=== PATIENT | male | born 1985 | race Caucasian/White ===

== ENCOUNTER 2019-01-07 02:30 | Emergency (ER) | payer SELFPAY ==
--- NOTE | 2019-01-07 02:42 | EDM.PDOC ---
ED HPI GENERAL MEDICAL PROBLEM - General Chief Complaint: Respiratory Problem Stated Complaint: COUGH AND CONGESTION GETTING WORSE Time Seen by Provider: 01/07/19 02:41 Source of Information: Reports: Patient History Limitations: Reports: No Limitations - History of Present Illness INITIAL COMMENTS - FREE TEXT/NARRATIVE: 33-year-old male presents to the ED due to severe paroxysmal coughing since going to bed tonight. He's coughed to the point of emesis 2. Patient states that he has been ill with cough for about 2 weeks. However the cough seems to gone much worse over the last 24 hours. He was off over the weekend and drove back from [facility] and [facility] to [email or web address] for work tomorrow. Cough is severe paroxysmal at times but not bringing up much sputum. No identified fever or chills. Poor appetite particularly today. He has taken some fluids but no food. No chills or rigors. One of his coworkers was diagnosed with pneumonia about a month ago. He denies high fever or body aches or headaches with initial onset of illness 2 weeks ago. Onset: Gradual (Has been coughing for 2 weeks. Worse the last 24 hours) Duration: Week(s): Location: Reports: Chest (2 weeks or paroxysmal cough to the point of emesis tonight.) Quality: Reports: Other (Paroxysmal nonproductive cough) Severity: Severe (Or paroxysmal cough tonight.) Improves with: Reports: None Worsens with: Reports: Other Context: Reports: Sick Contact (Possible contact with this coworker with pneumonia). Denies: Activity, Exercise (Worse with lying down), Lifting, Trauma , Other Associated Symptoms: Reports: Chest Pain, Cough (Severe paroxysmal cough with minimal sputum production), Loss of Appetite, Malaise, Shortness of Breath, Other (From coughing so hard.). Denies: Confusion, Headaches ( Her throat and raspy voice from coughing so much), Nausea/Vomiting, Rash, Seizure, Syncope Treatments [employer]: Reports: Other (see below) (None.) - Related Data Allergies Allergy/AdvReac Type Severity Reaction Status Date / Time Penicillins Allergy Hives Verified 01/07/19 02:47 Sulfa (Sulfonamide Allergy Hives Verified 01/07/19 02:47 Antibiotics) Home Meds: Home Meds Azithromycin [Zithromax] 250 mg PO DAILY #6 tab 01/07/19 [Rx] Hydrocodone/Chlorphen P-Stirex [Tussionex Pennkinetic Susp] 5 ml PO Q12H PRN # 60 ml 01/07/19 [Rx] Social & Family History - Living Situation & Occupation Occupation: Employed ED ROS GENERAL - Review of Systems Review Of Systems: See Below Constitutional: Reports: Malaise, Fatigue, Decreased Appetite (As anything in the last 24 hours but has taken adequate fluids). Denies: Fever, Chills HEENT: Reports: Throat Pain (From coughing so much), Other (Hoarseness of his voice) Respiratory: Reports: Shortness of Breath, Cough, Sputum. Denies: Wheezing, Pleuritic Chest Pain, Hemoptysis (Occasional sputum production) Cardiovascular: Reports: Chest Pain, Lightheadedness, Palpitations. Denies: Blood Pressure Problem (Central chest and coughing so much), Claudication, Dyspnea on Exertion, Edema (From coughing at times), Orthopnea Endocrine: Reports: Fatigue GI/Abdominal: Reports: Vomiting (Posttussive vomiting 2 tonight.) : Reports: No Symptoms Musculoskeletal: Reports: No Symptoms Skin: Reports: No Symptoms Neurological: Reports: No Symptoms Psychiatric: Reports: No Symptoms Hematologic/Lymphatic: Reports: No Symptoms ED EXAM, GENERAL - Physical Exam Exam: See Below Exam Limited By: No Limitations General Appearance: Alert, WD/WN, Mild Distress, Other (Anxious with mild hyperventilation 26/m. O2 sats 99% on room air. Blood pressures also mildly elevated at 153/95. He is afebrile) Eye Exam: Bilateral Eye: Normal Inspection Ears: Normal TMs Throat/Mouth: Other (The oropharynx is diffusely inflamed particularly posteriorly. Uvula is slightly swollen and believe this is secondary to coughing so hard. There was no exudate tonsils are absent.) Head: Atraumatic, Normocephalic Neck: Normal Inspection, Supple, Non-Tender, Full Range of Motion. No: Lymphadenopathy (L), Lymphadenopathy (R) Respiratory/Chest: Lungs Clear, Chest Non-Tender, Respiratory Distress. No: Rales, Rhonchi (Mild tachypnea.), Wheezing Cardiovascular: Normal Peripheral Pulses, Regular Rate, Rhythm, No Edema, No Gallop, No Murmur, No Rub Peripheral Pulses: 3+: Posterior Tibial (L), Posterior Tibial (R), Dorsalis Pedis (L), Dorsalis Pedis (R) GI/Abdominal: Normal Bowel Sounds, Soft, Non-Tender, No Organomegaly Back Exam: Normal Inspection, Full Range of Motion. No: CVA Tenderness (L), CVA Tenderness (R) Extremities: Normal Inspection, Normal Range of Motion, Non-Tender, No Pedal Edema Neurological: Alert, Oriented, CN II-XII Intact, Normal Cognition Psychiatric: Normal Affect, Normal Mood Skin Exam: Warm, Dry, Intact, Normal Color, No Rash Course - Vital Signs Last Recorded V/S: Last Vital Signs Temp 36.8 C 01/07/19 02:45 Pulse 93 01/07/19 02:45 Resp 26 H 01/07/19 02:45 BP 153/95 H 01/07/19 02:45 Pulse Ox 99 01/07/19 03:06 - Orders/Labs/Meds Orders: Active Orders 24 hr Category Date Time Status RT Aerosol Therapy [RC] ASDIRECTED Care 01/07/19 02:47 Active RT Aerosol Therapy [RC] ASDIRECTED Care 01/07/19 02:55 Active Chest 2V [CR] Stat Exams 01/07/19 02:46 Ordered Meds: Medications Discontinued Medications Generic Name Dose Route Start Last Admin Trade Name Freq PRN Reason Stop Dose Admin Albuterol/Ipratropium 3 ml 01/07/19 02:47 01/07/19 03:05 Duoneb 3.0-0.5 Mg/3 Ml NEB 01/07/19 02:48 3 ml ONETIME ONE Administration Azithromycin 500 mg 01/07/19 03:15 Zithromax PO 01/07/19 03:16 ONETIME ONE Budesonide 0.5 mg 01/07/19 02:55 01/07/19 03:05 Pulmicort NEB 01/07/19 02:56 0.5 mg ONETIME ONE Administration Ondansetron HCl 4 mg 01/07/19 03:15 Zofran Odt PO 01/07/19 03:16 ONETIME ONE Promethazine HCl/Codeine 15 ml 01/07/19 03:14 Phenergan With Codeine PO 01/07/19 03:15 ONETIME ONE - Radiology Interpretation Free Text/Narrative:: 33-year-old male presents to the ED with severe paroxysmal cough to the point of emesis 2 tonight. She's been coughing paroxysmal for the better part of 2 weeks. He thought he was getting better up until the last 24 hours when things seem to worsen. Cough is severe paroxysmal with minimal sputum production. He awoke from sleep due to coughing so hard with emesis. No identified fever or chills. Appetite is been poor . Has not had any solid foods in the last 24 hours but has taken adequate fluids. Your nose and throat exam shows diffuse oropharyngeal erythema and slight swelling of the uvula which I believe is from coughing so much. Are clear however on auscultation with no wheezes or adventitial sounds noted. Plan two-view chest x-ray he will then receive a DuoNeb with a Pulmicort nebulize to see if it can alleviate some of his coughing. - Re-Assessments/Exams Free Text/Narrative Re-Assessment/Exam: 01/07/19 03:16 2 view chest x-ray is within normal limits showing no signs of pneumonia. Therefore diagnosis is persistent bronchitis. He will be given Phenergan with codeine cough syrup 15 mils orally now with Zofran 4 mg sublingual for cough relief and prevent further vomiting. Laryngologist will be written for Zithromax 250 mg once daily for 6 more days. Initial dose of 500 mg was given orally in the ED. Cough syrup will be Tussionex suspension 5 mils every 12 hours as necessary for cough relief. Will be given to excuse him from the workplace today due to illness. Departure - Departure Time of Disposition: 03:25 Disposition: Home, Self-Care 01 Condition: Fair Clinical Impression: Bronchitis, Post-tussive emesis - Discharge Information *PRESCRIPTION DRUG MONITORING PROGRAM REVIEWED*: Not Applicable *COPY OF PRESCRIPTION DRUG MONITORING REPORT IN PATIENT PATRICIA: Not Applicable Prescriptions: Azithromycin [Zithromax] 250 mg PO DAILY #6 tab Hydrocodone/Chlorphen P-Stirex [Tussionex Pennkinetic Susp] 5 ml PO Q12H PRN # 60 ml PRN Reason: Cough relief Instructions: Acute Bronchitis, Adult, [id number] Referrals: PCP,None [Primary Care Provider] - Forms: ED Department Discharge, ED Return to Work/School Form Additional Instructions: Evaluation in the emergency room tonight in regards to development of a severe paroxysmal cough to the point of emesis 2 tonight. Coughing for the last 2 weeks but worse over the last 24 hours. On examination oropharynx is diffusely inflamed from coughing so much. Worse raspy voice. Lungs were clear to auscultation percussion. Today reveals no signs of pneumonia. You're treated in the ED with DuoNeb medications to help ease some of the inflammation of your upper airway and provide some degree of cough suppression. Also cough syrup Phenergan With Codeine 15 mils by mouth. This will take about an hour or so to work. Zofran was given under the tongue to alleviate any further nausea from the codeine. Antibiotic Zithromax 500 mg was given in the ED as well. Treatment at home will be continued use of Zithromax 250 mg once daily for the last 6 days. The next dose would be due at bedtime tonight Cough syrup is to be Tussionex 5 mils every 12 hours as necessary for relief of severe paroxysmal cough. This is usually used about an hour before planning to go to bed so that you can suppress cough overnight. This can cause drowsiness and impairment of ability to operate a motor vehicle and thus should not be used if operating machinery or driving. Note given to excuse from the workplace today due to current illness.. - My Orders Last 24 Hours: My Active Orders 01/07/19 02:46 Chest 2V [CR] Stat 01/07/19 02:47 RT Aerosol Therapy [RC] ASDIRECTED 01/07/19 02:55 RT Aerosol Therapy [RC] ASDIRECTED - Assessment/Plan Last 24 Hours: My Active Orders 01/07/19 02:46 Chest 2V [CR] Stat 01/07/19 02:47 RT Aerosol Therapy [RC] ASDIRECTED 01/07/19 02:55 RT Aerosol Therapy [RC] ASDIRECTED
[2019-01-07] MEDS ORDERED: Albuterol/Ipratropium 3.0-0.5 MG/3 ML Neb Soln NEB ONE (02:47)
[2019-01-07] MEDS ORDERED: Budesonide 0.5 MG/2 ML Neb Susp NEB ONE (02:55)
[2019-01-07] MEDS ORDERED: Codeine/Promethazine 10-6.25 MG/5 ML Syrup 5 ML UD Cup PO ONE (03:14)
[2019-01-07] MEDS ORDERED: Azithromycin 250 MG Tab PO ONE (03:15)
[2019-01-07] MEDS ORDERED: Ondansetron 4 MG Tab.DIS PO ONE (03:15)
--- NOTE | 2019-01-07 07:41 | CR ---
Chest: Two views of the chest were obtained. Comparison: No prior chest x-ray. Heart size and mediastinum are normal. Lungs are clear. Bony structures are unremarkable. Impression: 1. Nothing acute is seen on two-view chest x-ray. Diagnostic code #1
== END 2019-01-07 03:36 | disposition home or self-care (01) ==
LOC: JD.ED 02:30
DX: J40 Bronchitis, not specified as acute or chronic (principal); R11.10 Vomiting, unspecified; Z88.0 Allergy status to penicillin; Z79.899 Other long term (current) drug therapy
CPT/HCPCS: 71046; 94640; 99283; A9270; J7620-GY

== ENCOUNTER 2019-10-24 19:54 | Emergency (ER) | payer BC ==
--- NOTE | 2019-10-24 21:05 | EDM.PDOC ---
ED HPI GENERAL MEDICAL PROBLEM - General Chief Complaint: Upper Extremity Injury/Pain Stated Complaint: arm pain Time Seen by Provider: 10/24/19 20:42 Source of Information: Reports: Patient History Limitations: Reports: No Limitations - History of Present Illness INITIAL COMMENTS - FREE TEXT/NARRATIVE: Mr. Banegas is a very pleasant 33-year-old man with a past medical history significant for untreated hypertension, only, who states that he works as a floor/derrickhand on an oil over rig, but that he has been off work for about 7 months, since undergoing left knee ACL repair + meniscectomy on 04/25/2019. He returned to work, doing desk work only, about 3 weeks ago, then returned to full duty this past 10/21/2019. He states that his job involves a lot of climbing, gripping, twisting items, and arm and wrist work. He now presents to the ED stating that he developed the sensation of swelling to the distal two thirds of both of his forearms and both of his wrists Monday night. He has decreased range of motion of both of his wrists and decreased grants officer strength, due to pain. He continued to work through today, despite the pain, which he says is getting worse. He reports tingling and numbness to both of his hands and all of his fingers. No recent fever. He has been taking Tylenol and ibuprofen, which he states has not helped his pain at all. The patient reports that 3-1/2 years ago he developed rhabdomyolysis of both of his legs after strenuously working out. He states that his CPK went to about 36 ,000. He states that he was treated for 7 days. He is concerned that the same thing is happening to his forearms. The patient does not have a PCP. His shoulder Orthopedic Surgeon is in [place], [place]. He has not received an influenza vaccine this season, but is willing to receive one here today. Bilateral Lower Arm Pain Score (Numeric/FACES): 3 - Related Data Allergies Allergy/AdvReac Type Severity Reaction Status Date / Time Penicillins Allergy Hives Verified 01/07/19 02:47 Sulfa (Sulfonamide Allergy Hives Verified 01/07/19 02:47 Antibiotics) Home Meds: Home Meds Acetaminophen/HYDROcodone [Mil[place] 325-5 MG] 1 - 2 tab PO Q6H PRN #14 tablet 10/25 [Rx] Past Medical History Cardiovascular History: Reports: Hypertension (untreated) Musculoskeletal History: Reports: Other (See Below) (Rhabdomyolysis bilateral legs) - Past Surgical History HEENT Surgical History: Reports: Adenoidectomy, Oral Surgery (wisdom teeth extraction), Tonsillectomy GI Surgical History: Reports: Hernia, Abdominal (ventral) Musculoskeletal Surgical History: Reports: Other (See Below) (Left knee open ACL + meniscus repair 04/25/2019) Social & Family History - Tobacco Use Smoking Status *Q: Never Smoker Tobacco Use Within Last Twelve Months: Smokeless Tobacco (Chews 1 can per week) - Caffeine Use Caffeine Use: Reports: Energy Drinks, Tea - Alcohol Use Alcohol Use History: Yes Alcohol Use Frequency: Socially - Recreational Drug Use Recreational Drug Use: Yes Drug Use in Last 12 Months: No Recreational Drug Type: Reports: Marijuana/Hashish (last smoked May 2019) - Living Situation & Occupation Living situation: Reports: Single, Other (Roomate) Occupation: Employed ([employer] floor[employer]) Review of Systems - Review of Systems Review Of Systems: Comprehensive ROS is negative, except as noted in HPI. ED EXAM, GENERAL - Physical Exam Exam: See Below Exam Limited By: No Limitations General Appearance: Alert, WD/WN, No Apparent Distress Extremities: Other (Questionable swelling to the bilateral forearms. There is tenderness to palpation of the musculature of both forearms, and pain is induced in the forearms with wrist ROM, bilaterally. Strong distal pulses and both hands are well perfused. The patient denies tingling or numbness to his hands or fingers.) Course - Vital Signs Last Recorded V/S: Last Vital Signs Temp 36.9 C 10/24/19 20:06 Pulse 86 10/24/19 20:06 Resp 20 10/24/19 20:06 BP 149/93 H 10/24/19 20:06 Pulse Ox 99 10/24/19 20:06 - Orders/Labs/Meds Orders: Active Orders 24 hr Category Date Time Status Influenza Vaccine Charge [RC] .DISCHARGE Care 10/25/19 00:06 Active Labs: Laboratory Tests 10/24/19 Range/Units 21:15 Sodium 145 (136-145) mEq/L Potassium 3.6 (3.5-5.1) mEq/L Chloride 108 H (98-107) mEq/L Carbon Dioxide 25 (21-32) mEq/L Anion Gap 15.6 H (5-15) BUN 21 H (7-18) mg/dL Creatinine 0.9 (0.7-1.3) mg/dL Est Cr Clr Drug Dosing 137.00 mL/min Estimated GFR (MDRD) > 60 (>60) mL/min BUN/Creatinine Ratio 23.3 H (14-18) Glucose 81 (74-106) mg/dL Calcium 8.5 (8.5-10.1) mg/dL Total Bilirubin 0.6 (0.2-1.0) mg/dL AST 32 (15-37) U/L ALT 35 (16-63) U/L Alkaline Phosphatase 69 (46-116) U/L Creatine Kinase 599 H (39-308) U/L Total Protein 7.0 (6.4-8.2) g/dl Albumin 4.2 (3.4-5.0) g/dl Globulin 2.8 gm/dL Albumin/Globulin Ratio 1.5 (1-2) Meds: Medications Discontinued Medications Generic Name Dose Route Start Last Admin Trade Name Freq PRN Reason Stop Dose Admin Influenza Virus Vaccine 1 each 10/25/19 00:06 Pharmacy To Dose - Influenza Vaccine IM 10/25/19 00:07 ONETIME ONE Influenza Virus Vaccine 60 mcg 10/25/19 00:15 10/25/19 00:20 Fluzone Quad [id number] Syringe IM 10/25/19 00:16 60 mcg .ONCE ONE Administration - Re-Assessments/Exams Free Text/Narrative Re-Assessment/Exam: 10/24/19 21:03 The patient's history and physical examination are consistent with bilateral forearm muscle and tendon strain due to overuse. He likely lost a lot of strength while off work for 7 months and now suddenly returned to full duty. At this time, there is nothing to suggest compartment syndrome. Ordinarily, I would recommend conservative therapy with rest, ice, and ibuprofen, however, the patient reports a history of rhabdomyolysis to both of his lower extremities following strenuous working out 3-1/2 years ago, therefore I have ordered a CPK and CMP to evaluate. 10/24/19 22:15 The patient's CMP is remarkable for a chloride slightly elevated at 108, an anion gap mildly elevated at 15.6 with a bicarbonate normal at 25, and a BUN slightly elevated at 21 with a Cr normal at 0.9. The remainder of his CMP is unremarkable. His CPK is modestly elevated at 599. The minimum CPK to meet a diagnosis of rhabdomyolysis is 1500, therefore the patient does not have rhabdomyolysis. As suspected, though, he does appear to have bilateral forearm muscle and tendon strain, therefore I will recommend rest , ice, and ibuprofen. I will prescribe some [place] for pain, but he still needs to take ibuprofen as an anti-inflammatory. He should return to the ED to have his CPK rechecked if his pain gets worse, or he could follow-up with Ortho if his pain simply does not improve. Departure - Departure Time of Disposition: 00:07 Disposition: Home, Self-Care 01 Condition: Good Clinical Impression: Repetitive strain injury of both forearms - Discharge Information *PRESCRIPTION DRUG MONITORING PROGRAM REVIEWED*: Not Applicable *COPY OF PRESCRIPTION DRUG MONITORING REPORT IN PATIENT PATRICIA: Not Applicable Prescriptions: Acetaminophen/HYDROcodone [[place] 325-5 MG] 1 - 2 tab PO Q6H PRN #14 tablet PRN Reason: Pain (Severe 7-10) Instructions: Muscle Strain Referrals: Ronaldo Dyer MD [Physician] - Forms: ED Department Discharge, ED Return to Work/School Form Additional Instructions: You were seen in the emergency room after developing swelling and pain to both of your forearms 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 Workup in the ER included blood work, which found your CPK (muscle enzyme) to be modestly elevated at 599. This indicates that you have some muscle inflammation due to strain as the cause of your pain, but you are not suffering from rhabdomyolysis. We recommend that you ice your muscles, rest them, and take [id number] ibuprofen, 3 tablets (600 mg) every 8 hours, with food, [id number]. In addition to ibuprofen, you have been prescribed the opioid pain reliever [place]. You may take 1-2 tablets of [place] up to every 6 hours, as needed for pain not relieved by ibuprofen. If you take [place], do not drive or operate heavy machinery for 12 hours afterwards. [place] may cause constipation, so consider taking a stool softener. A note for work has been provided to you. If your arms are not feeling better by next week, please follow-up with the Orthopedic Surgeon Dr. Ronaldo Dyer. If your arm pain gets worse despite the above treatment, please return to the ER to have your CPK rechecked. Sepsis Event Note - Evaluation Sepsis Screening Result: No Definite Risk - Focused Exam Date Exam was Performed: 10/25/19 Time Exam was Performed: 18:30 - My Orders Last 24 Hours: My Active Orders 10/25/19 00:06 Influenza Vaccine Charge [RC] .DISCHARGE - Assessment/Plan Last 24 Hours: My Active Orders 10/25/19 00:06 Influenza Vaccine Charge [RC] .DISCHARGE
[2019-10-25] MEDS ORDERED: FLU Vacc QS2019-20(6MOS+)/PF 60 MCG/0.5 ML SYRINGE IM ONE (00:15)
== END 2019-10-25 00:25 | disposition home or self-care (01) ==
LOC: JD.ED 19:54
DX: S56.911A Strain of unspecified muscles, fascia and tendons at forearm level, right arm, initial encounter (principal); S56.912A Strain of unspecified muscles, fascia and tendons at forearm level, left arm, initial encounter; Z23 Encounter for immunization; F17.290 Nicotine dependence, other tobacco product, uncomplicated; I10 Essential (primary) hypertension; Z88.0 Allergy status to penicillin; Z88.2 Allergy status to sulfonamides; X50.9XXA Other and unspecified overexertion or strenuous movements or postures, initial encounter
CPT/HCPCS: 36415; 80053; 82550; 90686; 99283; 99283-25; G0008